=== PATIENT | male | born 1980 | race Two or more races ===

== ENCOUNTER 2024-12-31 18:18 | Emergency (ER) | payer OTHER ==
[~2024-12-31] VITALS: Ht 177.8 cm; Wt 127.0 kg
[2024-12-31] MEDS ORDERED: KETOROLAC TROMETHAMINE 30 MG VIAL IM STA (20:48)
[2024-12-31] MEDS ORDERED: KETOROLAC TROMETHAMINE 30 MG VIAL ONE ×2 (20:56→21:26)
== END 2024-12-31 22:19 | disposition home or self-care (01) ==
LOC: ER 18:18
DX: M25.511 Pain in right shoulder (principal)